=== PATIENT | female | born 1945 | race Caucasian/White ===

== ENCOUNTER 2018-05-06 07:28 | Day surgery (SDC) | payer MEDICARE, MEDICAID ==
[2018-05-06 07:35] VITALS: BMI 21.2
[2018-05-06 07:59] LABS: BASO % 0.3 % (0.0-2.0); EOS % 0.7 % (0.0-4.0); HEMOGLOBIN 14.4 g/dL (11.0-16.0); LYMPH # 2.9 K/uL (1.0-4.3); LYMPH % 43.9 % (20.0-40.0); MEAN CELL VOLUME 93.2 fL (81.0-99.0); MEAN CORPUSCULAR HEMOGLOBIN 31.6 pg (27.0-31.0); MEAN CORPUSCULAR HGB CONC 33.9 g/dL (33.0-37.0); MONO # 0.5 K/uL (0.0-0.8); MONO % 7.1 % (0.0-10.0); NEUT # 3.1 K/uL (1.8-7.0); NRBC % 0.1 % (0.0-2.0); RBC 4.56 Mil/uL (3.80-5.20); RED CELL DISTRIBUTION WIDTH 13.5 % (11.5-14.5); WHITE BLOOD COUNT 6.5 K/uL (4.8-10.8)
[2018-05-06 08:07] LABS: BLOOD UREA NITROGEN 12 mg/dL (7-17); CALCIUM 8.9 mg/dl (8.6-10.4); GFR NON-AFRICAN AMERICAN > 60
[2018-05-06] MEDS ORDERED: Phenylephrine 10 mg/ml Inj ONE (08:09)
[2018-05-06 08:10] LABS: INR 1.1
[2018-05-06] MEDS ORDERED: Midazolam 2 MG/2 ML VIAL ONE (08:10)
[2018-05-06] MEDS ORDERED: Etomidate 20 mg/10ml Inj IV ONE (08:10)
[2018-05-06] MEDS ORDERED: Lidocaine 4% (Laryng-O-Jet) Kit MM ONE (08:17)
--- NOTE | 2018-05-10 10:06 | CARD ---
APPROVED REPORT Date of service: 05/06/2018 EXAM: Transesophageal echocardiogram with color flow Doppler. INDICATION Aortic Valve Disease Reason For Test : Aortic valve disease PROCEDURE After obtaining informed consent, patient underwent transesophageal echo in the [facility]. Type of Sedation : Conscious Sedation Sedation was provided by anesthesiologist. Sedation was achieved with intravenously. The LUIS was performed complications. Throughout the procedure, the blood pressure, pulse oximetry, cardiac rhythm, and rate were monitored. The patient tolerated the procedure without adverse effects. Recovery from conscious sedation was uneventful and vital signs were stable. LEFT VENTRICLE The left ventricle is normal size. The left ventricular function is normal. The left ventricular ejection fraction is within the normal range. No left ventricle thrombus noted on this study. There is no ventricular septal defect visualized. There is no left ventricular aneurysm. RIGHT VENTRICLE The right ventricle is normal size. The right ventricular systolic function is normal. ATRIA The left atrium size is normal. The right atrium size is normal. The interatrial septum is intact with no evidence for an atrial septal defect. AORTIC VALVE Aortic valve is fibrocalcific There is moderate to severe aortic regurgitation. There is mild to moderate valvular aortic stenosis. There is no aortic valvular vegetation. MITRAL VALVE Mitral annular calcification is mild to moderate. There is no evidence of mitral valve prolapse. There is no mitral valve stenosis. Mitral regurgitation is mild. TRICUSPID VALVE The tricuspid valve is normal in structure. There is mild tricuspid regurgitation. There is no tricuspid valve stenosis. PULMONIC VALVE The pulmonary valve is normal in structure. GREAT VESSELS The aortic root is normal in size. <Conclusion> The left ventricular function is normal. The left ventricular ejection fraction is within the normal range. The right ventricle is normal size. Aortic valve is fibrocalcific There is mild to moderate valvular aortic stenosis. There is moderate to severe aortic regurgitation.
== END 2018-05-06 10:10 | disposition home or self-care (01) ==
LOC: C.CATHLAB 07:28
PROVIDERS: ATTEND Internal Medicine Cardiovascular Disease
DX: I06.1 Rheumatic aortic insufficiency (principal); I35.0 Nonrheumatic aortic (valve) stenosis
CPT/HCPCS: 36415; 80048; 85025; 85610; 85730; 93312; J2250; J2370; J3010

== ENCOUNTER 2018-09-12 07:23 | Day surgery (SDC) | payer MEDICARE, MEDICAID ==
[2018-09-12 07:51] VITALS: BMI 22.4
[2018-09-12 08:26] LABS: HEMOGLOBIN 14.2 g/dL (11.0-16.0); MEAN CELL VOLUME 92.1 fL (81.0-99.0); MEAN CORPUSCULAR HEMOGLOBIN 32.6 pg (27.0-31.0); MEAN CORPUSCULAR HGB CONC 35.4 g/dL (33.0-37.0); MEAN PLATELET VOLUME 7.6 fL (7.2-11.7); RBC 4.34 Mil/uL (3.80-5.20); RED CELL DISTRIBUTION WIDTH 12.8 % (11.5-14.5); WHITE BLOOD COUNT 6.5 K/uL (4.8-10.8)
[2018-09-12 08:31] LABS: INR 1.1; PROTHROMBIN TIME 11.8 SECONDS (9.7-12.2)
[2018-09-12 08:36] LABS: BLOOD UREA NITROGEN 11 mg/dL (7-17); CALCIUM 9.4 mg/dl (8.6-10.4); GFR NON-AFRICAN AMERICAN > 60
[2018-09-12] MEDS ORDERED: Lidocaine 2% MPF (5 ml) Inj ONE (09:18)
[2018-09-12] MEDS ORDERED: Verapamil 2 ML ONE (09:18)
[2018-09-12] MEDS ORDERED: Nitroglycerin 50mg in D5W 50 MG/250 ML BOTTLE IV ONE (09:18)
[2018-09-12] MEDS ORDERED: Iohexol 350mg/ml 100 ML ONE (09:18)
[2018-09-12] MEDS ORDERED: Midazolam 2 MG/2 ML VIAL ONE (09:34)
[2018-09-12] MEDS ORDERED: Sodium Chloride 0.9% 500 ML IV SCH (11:00)
[2018-09-12] MEDS ORDERED: Lidocaine 4% (Laryng-O-Jet) Kit MM ONE (15:59)
--- NOTE | 2018-09-16 16:58 | CARD ---
APPROVED REPORT Date of service: 09/12/2018 EXAM: Two-dimensional and M-mode echocardiogram with Doppler and color Doppler. INDICATION Aortic Valve Disease Chest Pain 2D DIMENSIONS IVSd1.0 (0.7-1.1cm)LVDd4.2 (3.9-5.9cm) LVOT Diameter2.0 (1.8-2.4cm)PWd1.1 (0.7-1.1cm) LA Pkoqcy35 (18-58mL)LVDs2.6 (2.5-4.0cm) FS (%) 38.5 %LVEF (%)69.2 (>50%) LVEF ([employer]'s)61.94 % M-Mode DIMENSIONS Left Atrium (MM)3.03 (2.5-4.0cm)IVSd1.33 (0.7-1.1cm) Aortic Root3.66 (2.2-3.7cm)LVDd4.26 (4.0-5.6cm) Aortic Cusp Exc.1.22 (1.5-2.0cm)PWd1.18 (0.7-1.1cm) FS (%) 35 %LVDs2.78 (2.0-3.8cm) LVEF (%)64 (>50%) Aortic Valve AoV Peak Ykihsvrj555.1cm/sAoV VTI75.9cmAO Peak GR.46mmHg LVOT Peak Knuhvgeo639.2cm/sLVOT VTI28.19cmAO Mean GR.30mmHg SURI (VMAX)1.62gy7DNL (VTI)1.58hj3PS P 1/2 Epqg092nk Mitral Valve MV E Dmategiz22.6cm/sMV A Qeownotc600.3cm/sE/A ratio0.5 TDI Lateral E' Peak V4.87cm/sMedial E' Peak V3.35cm/sE/Lateral E'14.1 E/Medial E'20.5 Tricuspid Valve TR Peak Uvyhleef748pp/sTR Peak Gr.95ixNsBLCH27boQy LEFT VENTRICLE The left ventricle is normal size. There is mild concentric left ventricular hypertrophy. Left ventricle systolic function is normal. The Ejection Fraction is 60-65%. There is normal LV segmental wall motion. Tissue Doppler imaging reveals abnormal left ventricular diastolic dysfunction. No left ventricle thrombus noted on this study. There is no ventricular septal defect visualized. There is no left ventricular aneurysm. RIGHT VENTRICLE The right ventricle is normal size. The right ventricular systolic function is normal. ATRIA The left atrium size is normal. The right atrium size is normal. The interatrial septum is intact with no evidence for an atrial septal defect. AORTIC VALVE The aortic valve is moderately thickened. There is moderate to severe aortic regurgitation. There is moderate to severe valvular aortic stenosis. SURI 1.0 to 1.1 sqcm Peak gradient 49mmHg Mean gradient 32mmHg There is no aortic valvular vegetation. MITRAL VALVE Mitral annular calcification is moderate. There is no evidence of mitral valve prolapse. There is no mitral valve stenosis. Mitral regurgitation is mild to moderate. TRICUSPID VALVE The tricuspid valve is normal in structure. There is mild to moderate tricuspid regurgitation. There is no tricuspid valve prolapse or vegetation. There is no tricuspid valve stenosis. PULMONIC VALVE The pulmonary valve is normal in structure. GREAT VESSELS The aortic root is normal in size. <Conclusion> Left ventricle systolic function is normal. The Ejection Fraction is 60-65%. Tissue Doppler imaging reveals abnormal left ventricular diastolic dysfunction. The right ventricular systolic function is normal. The aortic valve is moderately thickened. The aortic valve is moderately thickened. There is moderate to severe aortic regurgitation. There is moderate to severe valvular aortic stenosis. SURI 1.0 to 1.1 sqcm Peak Aortic valve gradient 49mmHg Mean Aortic valve gradient 32mmHg
--- NOTE | 2018-09-17 02:35 | CARDCATH ---
PROCEDURE DATE: 09/12/2018 PROCEDURES: 1. Left heart catheterization. 2. Coronary angiogram. 3. Aortic root angiogram. CLINICAL INDICATIONS: 1. Dyspnea on mild exertion. 2. Chest tightness. 3. Aortic valve disease. 4. Hypertension. 5. Hyperlipidemia. REFERRING PHYSICIAN: Noel Azevedo MD PERFORMING PHYSICIAN: Selvin Duran MD DESCRIPTION OF PROCEDURE: After informed consent, the patient was prepped and draped in the usual sterile fashion. Lidocaine 2% was given in the right wrist for local anesthesia. Using micropuncture technique, a 6-[place] sheath was introduced into right radial artery. A JR4 6-[place] diagnostic catheter was inserted into left ventricle. LVEDP was measured. Contrast was injected and LV angiogram was done. Then, the catheter was pulled back across the aortic valve. Gradient across the aortic valve was measured. The same catheter was engaged into right coronary artery. Contrast was injected and right coronary angiogram was done. The catheter was exchanged to 5-[place] catheter. The catheter was engaged into left main coronary artery. Contrast was injected and left coronary angiogram was done. Then, pigtail catheter was inserted into the ascending aorta. Using the power injector, aortic root angiogram was done. The patient tolerated the procedure well. Postprocedure, Terumo radial band was applied to the right wrist with excellent hemostasis. FINDINGS: 1. Left main coronary artery is patent. 2. LAD and diagonal branch are patent. 3. Left circumflex and obtuse marginal branch are patent. 4. Right coronary artery is dominant and patent. 5. LV ejection fraction was approximately 65%. No wall motion abnormalities noted. EDP is 18. There is a 40 mm gradient across the aortic valve. 6. Aortic root angiogram has demonstrated severe aortic regurgitation. IMPRESSION: 1. Normal coronaries. 2. Severe aortic regurgitation. 3. Gradient across the aortic valve is 40 mmHg. Selvin Duran MD
== END 2018-09-12 14:11 | disposition home or self-care (01) ==
LOC: C.CATHLAB 07:23
PROVIDERS: ATTEND Internal Medicine Cardiovascular Disease
DX: I35.2 Nonrheumatic aortic (valve) stenosis with insufficiency (principal); R07.89 Other chest pain; I10 Essential (primary) hypertension; E78.5 Hyperlipidemia, unspecified
CPT/HCPCS: 36415; 80048; 85027; 85610; 85730; 93306; 93458; 93567; 94770; 99152; 99153; C1758; C1769; C1887; J1644; J2001; J2250; J3010; J7040; Q9967